=== PATIENT | male | born 1960 | race Caucasian/White ===

== ENCOUNTER 2024-09-03 14:58 | Outpatient (CLI) | payer BC, SELFPAY ==
--- NOTE | ~2024-09-03 | XR_ITS ---
XR shoulder RT min 2V Ordering provider: Anthony Wong, History: . R Shoulder Pain . Comparison: None. FINDINGS: BONES: No acute fracture or dislocation. Degenerative changes in the area of the greater tuberosity w ith sparing in the acromion process. Rotator cuff injury is not excluded. JOINT SPACES: The acromioclavicular joint shows osteoarthritic changes.. The glenohumeral joint is no rmal. SOFT TISSUES: Normal. IMPRESSION: No acute osseous abnormality right shoulder. Reviewed, dictated and finalized at location A. [facility]
== END 2024-09-03 14:59 | disposition home or self-care (01) ==
LOC: CHSIMG 15:04
PROVIDERS: PCP Family Medicine; Visit Provider Family Medicine
DX: M25.511 Pain in right shoulder (principal)
CPT/HCPCS: 73030